=== PATIENT | male | born 1985 | race Caucasian/White ===

== ENCOUNTER 2017-03-21 09:50 | Emergency (ER) | payer MEDICAID ==
[~2017-03-21] VITALS: Ht 175.3 cm; Wt 75.6 kg
[2017-03-21 09:52] VITALS: Ht 175.3 cm; Wt 75.6 kg
[2017-03-21] MEDS ORDERED: morphine 4 MG/ML VIAL IV STA (11:09)
[2017-03-21] MEDS ORDERED: ONDANSETRON 4 MG INJ IV STA (11:09)
[2017-03-21] MEDS ORDERED: SOD CHLORIDE 0.9% 1,000 ML IV ONE (11:30)
[2017-03-21] MEDS ORDERED: FAMOTIDINE 20 MG INJ IV ONE (11:30)
[2017-03-21 11:35] LABS: BASOPHILS % 0.3 % (0.0-2.0); EOSINOPHILS # 0.1 10^3/ul (0.0-0.5); EOSINOPHILS % 0.9 % (0.0-7.0); HEMATOCRIT 46.9 % (42.0-52.0); HEMOGLOBIN 15.2 g/dl (14.0-18.0); LYMPHOCYTES # 2.4 10^3/ul (0.8-2.9); LYMPHOCYTES % 27.4 % (15.0-51.0); MEAN CORPUSCULAR HEMOGLOBIN 28.4 pg (29.0-33.0); MEAN CORPUSCULAR HGB CONC 32.4 g/dl (32.0-37.0); MEAN CORPUSCULAR VOLUME 87.5 fl (82.0-101.0); MEAN PLATELET VOLUME 10.2 fl (7.4-10.4); MONOCYTE # 0.7 10^3/ul (0.3-0.9); MONOCYTES % 8.6 % (0.0-11.0); NEUTROPHIL # 5.4 10^3/ul (1.6-7.5); NEUTROPHILS % 62.6 % (39.0-77.0); PLATELET COUNT 263 10^3/UL (140-415); RED BLOOD COUNT 5.36 10^6/ul (4.70-6.10); RED CELL DISTRIBUTION WIDTH 12.8 % (11.5-14.5); WHITE BLOOD COUNT 8.6 10^3/ul (4.8-10.8)
--- NOTE | 2017-03-21 11:54 | RADRPT ---
PROCEDURE: CT KUB. CLINICAL INDICATION: Left upper quadrant abdominal pain TECHNIQUE: CT KUB (Renal Stone Survey) without contrast was performed on a [employer] volumetric [address] scanner. No IV contrast was administered. 3-D coronal reformatted images were obtained from the axial source images. CTDI: 8.9 mGy DLP: 520 mGy-cm One or more of the following dose reduction techniques were utilized: 1.) Automated exposure control 2.) Adjustment of the mA +/- kV according to patient's size 3.) Use of iterative reconstruction technique. COMPARISON: No prior studies are available for comparison. FINDINGS: Limited evaluation of the lung bases are clear. No pleural effusions. The unenhanced liver, spleen, bilateral adrenal glands, gallbladder, and pancreas are normal-appeari ng. Tiny bilateral nonobstructing renal calculi are present measuring up to 3 mm in the left upper pole and 2 mm in the right upper pole. No hydronephrosis. No suspicious gross renal masses. The ureters a re nondilated. The urinary bladder is grossly normal. The small and large bowel are thin-walled and nondilated without evidence for obstruction. There is mild colonic diverticulosis without CT evidence for diverticulitis. The appendix is not definitively visualize though there are no secondary signs for appendicitis in the right lower quadrant. No free air, free fluid, mesenteric stranding, nor abdominal pelvic adenopathy by imaging size crite suellen. No suspicious osseous lesions. The abdominal aorta is grossly normal though incompletely characterized without intravenous contrast . IMPRESSION: Multiple bilateral nonobstructing renal calculi measuring up to 3 mm in the left upper pole and 2 mm in the right upper pole. No associated hydronephrosis. No ureteral stones. Appendix is not directly visualize though there are no secondary signs of appendicitis in the right lower quadrant of the abdomen. Physician Shonda Date Time Electronically viewed and signed by Physician Shonda on 03/21/2017 11:53 ML/
[2017-03-21 11:56] LABS: ALBUMIN 4.2 g/dl (3.3-4.9); ALBUMIN/GLOBULIN RATIO 1.07; BILIRUBIN,INDIRECT 0.2 mg/dl (0-1.1); BILIRUBIN,TOTAL 0.2 mg/dl (0.2-1.3); CREATININE 1.21 mg/dl (0.61-1.24); POTASSIUM 3.9 mmol/L (3.5-5.1); TOTAL PROTEIN 8.1 g/dl (6.1-8.1)
[2017-03-21 13:04] LABS: ADD UMIC NO; UR ASCORBIC ACID NEGATIVE (NEGATIVE); UR BILIRUBIN (Dip) NEGATIVE (NEGATIVE); UR BLOOD (Dip) NEGATIVE (NEGATIVE); UR CLARITY CLEAR (CLEAR); UR COLOR YELLOW (YELLOW); UR GLUCOSE (Dip) NEGATIVE (NEGATIVE); UR KETONES (Dip) NEGATIVE (NEGATIVE); UR LEUKOCYTE ESTERASE (Dip) NEGATIVE Leu/ul (NEGATIVE); UR NITRITE (Dip) NEGATIVE (NEGATIVE); UR SPECIFIC GRAVITY (Dip) 1.018 (1.003-1.030); UR TOTAL PROTEIN (Dip) NEGATIVE (NEGATIVE); UR UROBILINOGEN (Dip) NEGATIVE (NEGATIVE)
--- NOTE | 2017-03-21 14:19 | RADRPT ---
PROCEDURE: XR Chest AP portable CLINICAL INDICATION: Left-sided pain TECHNIQUE: An AP portable radiograph of the chest was submitted. COMPARISON: None. FINDINGS: Support Hardware: None Cardiovascular: The cardiovascular silhouette appears unremarkable. Lung Granger: The lung granger appear clear with no nodule, alveolar infiltrate, or interstitial promi nence evident. Pleural Spaces: No pneumothorax or pleural effusion is identified. Osseous Structures: The osseous structures appear intact. Soft Tissues: The soft tissues appear unremarkable. IMPRESSION: Unremarkable portable chest. Physician Giles Date Time Electronically viewed and signed by Brittny Zacarias Physician on 03/21/2017 14:19 /
[2017-03-21] MEDS ORDERED: HYDR-906 PO (14:37)
[2017-03-21] MEDS ORDERED: TAMS-14 PO (14:37)
--- NOTE | 2017-03-21 18:34 | ERD ---
ER Documentation Chief Complaint Chief Complaint abdominal pain x 2 days HPI 31-year-old male patient with a past medical history of gastritis presents to the ED complaining of abdominal pain that started intermittently for the past 2 days. Patient also reports that he has some left sided chest pain that does not radiate. States that the pain is worse with palpation and movement. Denies any dysuria, urgency, scrotal pain, frequency, nausea, vomiting, diarrhea. Patient reports normal daily bowel movements. ROS All systems reviewed and are negative except as per history of present illness. Medications Home Meds Active Scripts Tamsulosin Hcl* (Flomax*) 0.4 Mg Cap.er.24h, 0.4 MG PO BID, #30 CAP Prov:CHINO NIXON PA-C 03/21/17 Hydrocodone/Acetaminophen ([place] 5-325 Tablet) 1 Each Tablet, 1 TAB PO Q6H Y for PAIN, #7 TAB Prov:CHINO NIXON PA-C 03/21/17 Allergies Allergies: Coded Allergies: No Known Allergy (Unverified , 03/21/17) PMhx/Soc Medical and Surgical Hx: pt denies Medical Hx, pt denies Surgical Hx History of Surgery: No Anesthesia Reaction: No Hx Neurological Disorder: No Hx Respiratory Disorders: No Hx Cardiac Disorders: No Hx Psychiatric Problems: No Hx Miscellaneous Medical Probl: Yes (GASTRITIS) Hx Alcohol Use: No Hx Substance Use: No Hx Tobacco Use: No Smoking Status: Never smoker Physical Exam Vitals Vital Signs Date Time Temp Pulse Resp B/P Pulse Ox O2 Delivery O2 Flow Rate FiO2 03/21/17 09:52 97.9 54 16 122/59 97 Physical Exam Const: Mto-[id number]-ycnrqkiho, well-nourished. In no acute distress. Head: Atraumatic, normocephalic Eyes: Normal Conjunctiva without injection. No purulent discharge. ENT: Normal external ear, nose. Moist oropharynx without tonsillar exudates. Non -erythematous pharynx. Uvula midline. No drooling. No trismus. Neck: No cervical midline tenderness. Full range of motion. No meningismus. No cervical lymphadenopathy. No JVD. Resp: Clear to auscultation bilaterally. No wheezing, rhonchi, rales, or crackles. No accessory muscle use. No retractions. Cardio: Regular rate and rhythm. No murmurs, rubs or gallops. Abd: Soft, generalized tenderness, non distended. Normal bowel sounds. No palpable masses. No rebound tenderness. No guarding. Negative McBurney's point. Negative psoas sign. Negative obturator sign. Skin: No petechiae or rashes Back: No midline tenderness. No CVA tenderness. Ext: No cyanosis, or edema. Neur: Awake and alert. Normal gait. Normal coordination. Psych: Normal Mood and Affect Result Diagram: 03/21/17 1120 03/21/17 1120 Results 24 hrs Laboratory Tests Test 03/21/17 11:20 03/21/17 12:55 White Blood Count 8.610^3/ul Red Blood Count 5.3610^6/ul Hemoglobin 15.2g/dl Hematocrit 46.9% Mean Corpuscular Volume 87.5fl Mean Corpuscular Hemoglobin 28.4pg Mean Corpuscular Hemoglobin Concent 32.4g/dl Red Cell Distribution Width 12.8% Platelet Count 10328^3/UL Mean Platelet Volume 10.2fl Neutrophils % 62.6% Lymphocytes % 27.4% Monocytes % 8.6% Eosinophils % 0.9% Basophils % 0.3% Nucleated Red Blood Cells % 0.0/100WBC Neutrophils # 5.410^3/ul Lymphocytes # 2.410^3/ul Monocytes # 0.710^3/ul Eosinophils # 0.110^3/ul Basophils # 0.010^3/ul Nucleated Red Blood Cells # 0.010^3/ul Sodium Level 145mmol/L Potassium Level 3.9mmol/L Chloride Level 106mmol/L Carbon Dioxide Level 30mmol/L Anion Gap 13 Blood Urea Nitrogen 17mg/dl Creatinine 1.21mg/dl Glucose Level 85mg/dl Calcium Level 9.0mg/dl Total Bilirubin 0.2mg/dl Direct Bilirubin 0.00mg/dl Indirect Bilirubin 0.2mg/dl Aspartate Amino Transf (AST/SGOT) 29IU/L Alanine Aminotransferase (ALT/SGPT) 35IU/L Alkaline Phosphatase 63IU/L Total Protein 8.1g/dl Albumin 4.2g/dl Globulin 3.90g/dl Albumin/Globulin Ratio 1.07 Lipase 97U/L Urine Color YELLOW Urine Clarity CLEAR Urine pH 8.0 Urine Specific [place] 1.018 Urine Ketones NEGATIVEmg/dL Urine Nitrite NEGATIVEmg/dL Urine Bilirubin NEGATIVEmg/dL Urine Urobilinogen NEGATIVEmg/dL Urine Leukocyte Esterase NEGATIVELeu/ul Urine Hemoglobin NEGATIVEmg/dL Urine Glucose NEGATIVEmg/dL Urine Total Protein NEGATIVEmg/dl Current Medications Medications (Trade) Dose Ordered Sig/Jose Juan Route PRN Reason Start Time Stop Time Status Last Admin Dose Admin Ondansetron HCl (Zofran Inj) 4 mg ONCE STAT IV 03/21/17 11:09 03/21/17 11:13 DC 03/21/17 11:41 Famotidine (Pepcid Iv) 20 mg ONCE ONCE IV 03/21/17 11:30 03/21/17 11:31 DC 03/21/17 11:41 Morphine Sulfate 4 mg 4 mg ONCE STAT IV 03/21/17 11:09 03/21/17 11:10 Cancel Sodium Chloride (NS) 1,000 ml @ 1,000 mls/hr Q1H ONCE IV 03/21/17 11:30 03/21/17 12:29 DC 03/21/17 11:27 Procedures/MDM This is a 31-year-old male patient with no significant past medical history presents to the ED complaining of abdominal pain and chest pain for the past 2 days. Patient was further worked up with CBC, CMP, lipase, UA, CT of the abdomen and pelvis, EKG, CXR. Patient's pain and symptoms have improved after treatment with 4 mg IV Zofran, 20 mg IV Famotidine, 4 mg IV Morphine. CBC: No leukocytosis. No e/o of systemic infection. No e/o anemia. CMP: No e/o severe acidosis, alkalosis, renal failure, diabetic ketoacidosis, liver disease Lipase within normal limits. Urine: No leukocyte esterase, no nitrites, no hematuria. EKG reviewed and interpreted by Dr. Calix Rate/Rhythm: [51 bpm, Sinus Bradycardia] No ectopy, no ST elevations, normal axis. QRS, ST, T-waves: [No changes consistent w/ acute ischemia] Impression: [No evidence of ischemia or arrhythmia] PROCEDURE: CT KUB. CLINICAL INDICATION: Left upper quadrant abdominal pain TECHNIQUE: CT KUB (Renal Stone Survey) without contrast was performed on a [employer] volumetric [address] scanner. No IV contrast was administered. 3-D coronal reformatted images were obtained from the axial source images. CTDI: 8.9 mGy DLP: 520 mGy-cm One or more of the following dose reduction techniques were utilized: 1.) Automated exposure control 2.) Adjustment of the mA +/- kV according to patient's size 3.) Use of iterative reconstruction technique. COMPARISON: No prior studies are available for comparison. FINDINGS: Limited evaluation of the lung bases are clear. No pleural effusions. The unenhanced liver, spleen, bilateral adrenal glands, gallbladder, and pancreas are normal-appearing. Tiny bilateral nonobstructing renal calculi are present measuring up to 3 mm in the left upper pole and 2 mm in the right upper pole. No hydronephrosis. No suspicious gross renal masses. The ureters are nondilated. The urinary bladder is grossly normal. The small and large bowel are thin-walled and nondilated without evidence for obstruction. There is mild colonic diverticulosis without CT evidence for diverticulitis. The appendix is not definitively visualize though there are no secondary signs for appendicitis in the right lower quadrant. No free air, free fluid, mesenteric stranding, nor abdominal pelvic adenopathy by imaging size criteria. No suspicious osseous lesions. The abdominal aorta is grossly normal though incompletely characterized without intravenous contrast. IMPRESSION: Multiple bilateral nonobstructing renal calculi measuring up to 3 mm in the left upper pole and 2 mm in the right upper pole. No associated hydronephrosis. No ureteral stones. Appendix is not directly visualize though there are no secondary signs of appendicitis in the right lower quadrant of the abdomen. PROCEDURE: XR Chest AP portable CLINICAL INDICATION: Left-sided pain TECHNIQUE: An AP portable radiograph of the chest was submitted. COMPARISON: None. FINDINGS: Support Hardware: None Cardiovascular: The cardiovascular silhouette appears unremarkable. Lung Cummings: The lung cummings appear clear with no nodule, alveolar infiltrate, or interstitial prominence evident. Pleural Spaces: No pneumothorax or pleural effusion is identified. Osseous Structures: The osseous structures appear intact. Soft Tissues: The soft tissues appear unremarkable. IMPRESSION: Unremarkable portable chest. Symptoms are likely secondary to nephrolithiasis. Low suspicion for septic renal stone, testicular torsion, gastritis, GERD, peptic ulcer disease, cholecystitis, choledocholithiasis, cholangitis, pancreatitis, appendicitis, bowel obstruction, ileus, volvulus, nephrolithiasis, pyelonephritis, hepatitis, perforated viscus, diverticulitis, abdominal hernia, acute abdomen, mesenteric ischemia or other emergent conditions. Low suspicion for acute myocardial infarction, pneumothorax, pneumonia, cardiac tamponade, Thoph-Vmbstuipx-Taagb Syndrome, Brugada Syndrome, pulmonary embolism, AAA, aortic dissection, thoracic aortic dissection, endocarditis, pericarditis, cocaine-related ischemia , Boerhaave's syndrome, cardiac dysrhythmias,meningitis, intracranial bleed, seizure, stroke, TIA or other emergent conditions. 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 Instructed patient to return to the ED sooner for any worsening symptoms. Patient's questions were answered. Patient understood and agreed with discharge plan. Patient discharged stable. Departure Diagnosis: Primary Impression: Multiple complaints Condition: Stable Patient Instructions: Chest Wall Pain, Costochondritis, Kidney Stone W/ Colic Referrals: [facility] YOU HAVE RECEIVED A MEDICAL SCREENING EXAM AND THE RESULTS INDICATE THAT YOU DO NOT HAVE A CONDITION THAT REQUIRES URGENT TREATMENT IN THE EMERGENCY DEPARTMENT. FURTHER EVALUATION AND TREATMENT OF YOUR CONDITION CAN WAIT UNTIL YOU ARE SEEN IN YOUR DOCTORS OFFICE WITHIN THE NEXT 1-2 DAYS. IT IS YOUR RESPONSIBILITY TO MAKE AN APPOINTMENT FOR [facility]ARE. IF YOU HAVE A PRIMARY DOCTOR --you should call your primary doctor and schedule an appointment IF YOU DO NOT HAVE A PRIMARY DOCTOR YOU CAN CALL OUR PHYSICIAN REFERRAL HOTLINE AT IF YOU CAN NOT AFFORD TO SEE A PHYSICIAN YOU CAN CHOSE FROM THE FOLLOWING [facility] [address] [facility]. [facility] [address] [facility]. [facility] [address] [facility]. [facility] [address] [facility] [address] [facility]. [facility]. [address] [facility]. [facility] YOU HAVE RECEIVED A MEDICAL SCREENING EXAM AND THE RESULTS INDICATE THAT YOU DO NOT HAVE A CONDITION THAT REQUIRES URGENT TREATMENT IN THE EMERGENCY DEPARTMENT. FURTHER EVALUATION AND TREATMENT OF YOUR CONDITION CAN WAIT UNTIL YOU ARE SEEN IN YOUR DOCTORS OFFICE WITHIN THE NEXT 1-2 DAYS. IT IS YOUR RESPONSIBILITY TO MAKE AN APPOINTMENT FOR [facility]-UP CARE. IF YOU HAVE A PRIMARY DOCTOR --you should call your primary doctor and schedule and appointment IF YOU DO NOT HAVE A PRIMARY DOCTOR YOU CAN CALL OUR PHYSICIAN REFERRAL HOTLINE AT . IF YOU CAN NOT AFFORD TO SEE A PHYSICIAN YOU CAN CHOSE FROM THE FOLLOWING [facility] INSTITUTIONS: [facility] [address] [place] [address] [facility] [address] [place], [place] [id number] [place] [address] [address] [place] [address] [facility]/SPECIALTIES Additional Instructions: Llame al doctor MAANA y emani mignon LILIA PARA DENTRO DE 2-3 ADORNO para mignon referencia para aliya a un urlogo.Dgale a la secretaria que nosotros le instruimos hacer esta lilia.Avise o llame si harrington condicin se empeora antes de la lilia. Regresa aqui si peor o no mejor. La medicina que se le recet puede causarle sueo.NO DEBE MANEJAR NI OPERAR MAQUINARIAS PELIGROSAS mientras esta tomando esta medicina! CHINO NIXON PA-C Mar 21, 2017 18:34
== END 2017-03-21 15:03 | disposition home or self-care (01) ==
LOC: FTE 09:50
DX: R10.9 Unspecified abdominal pain (principal); R07.9 Chest pain, unspecified
CPT/HCPCS: 36415; 71010; 74176; 80053; 81003; 83690; 85025; 93005; 96374; 96375; J2405; J7030; Z7502; Z7610; J2270